=== PATIENT | male | born 1970 | race Caucasian/White ===

== ENCOUNTER → 2020-01-23 16:08 | Outpatient (BNVA) | payer MEDICARE, SELFPAY | PROVIDERS: PCP Nurse Practitioner Family; Referring Provider Nurse Practitioner Family; Visit Provider Internal Medicine | DX: I82.401 Acute embolism and thrombosis of unspecified deep veins of right lower extremity (principal); Z51.81 Encounter for therapeutic drug level monitoring; Z79.01 Long term (current) use of anticoagulants | CPT/HCPCS: 85610 ==

== ENCOUNTER → 2020-02-20 15:59 | Outpatient (BNVA) | payer MEDICARE, SELFPAY | PROVIDERS: PCP Nurse Practitioner Family; Visit Provider Internal Medicine | DX: I82.401 Acute embolism and thrombosis of unspecified deep veins of right lower extremity (principal); Z51.81 Encounter for therapeutic drug level monitoring; Z79.01 Long term (current) use of anticoagulants | CPT/HCPCS: 85610; 99211 ==

== ENCOUNTER → 2020-03-26 15:49 | Outpatient (BNVA) | payer MEDICARE, SELFPAY | PROVIDERS: PCP Nurse Practitioner Family; Visit Provider Internal Medicine | DX: I82.401 Acute embolism and thrombosis of unspecified deep veins of right lower extremity (principal); Z51.81 Encounter for therapeutic drug level monitoring; Z79.01 Long term (current) use of anticoagulants | CPT/HCPCS: 85610; 99211 ==

== ENCOUNTER 2021-06-13 08:37 | Outpatient (REF) | payer OTHER, SELFPAY ==
[2021-06-13 11:38] LABS: INTERNATIONAL NORM RATIO 2.4 (0.9-1.1); Prothrombin Time 27.6 SEC (9.9-13.0)
[2021-06-13 12:07] LABS: Alanine Aminotransferase 11 U/L (0-40); Albumin Level 4.2 g/dL (3.5-5.0); Alkaline Phosphatase 42 U/L (39-117); Anion Gap 12 (12-20); Aspartate Amino Transferase 15 U/L (5-37); Bilirubin Total 0.4 mg/dL (0.0-1.0); Blood Urea Nitrogen 8 mg/dL (9-16); Carbon Dioxide 25 mmol/L (22-29); Chloride 107 mmol/L (96-108); Cholesterol 212 mg/dL; Estimated Glomerular Filt Rate > 60; Glucose Fasting 110 mg/dL (60-99); HDL Cholesterol 58 mg/dL; LDL Cholesterol Calculated 138 mg/dl; Potassium 4.6 mmol/L (3.3-5.1); Prostate Specific Antigen Scr 1.49 ng/mL (<0.05-4.0); Sodium 139 mmol/L (135-145); TSH reflex Free T4 1.85 uIU/mL (0.32-4.0); Total Protein 7.3 g/dL (6.5-8.0); Triglycerides 81 mg/dL
[2021-06-13 12:20] LABS: Appearance Urine HAZY; Color Urine YELLOW; Glucose Urine UA NEG (NEG); Leukocyte Esterase Urine NEG (NEG); Nitrite Urine NEG (NEG); Urine Blood NEG (NEG); Urine Ketones NEG (NEG); Urine Protein NEG (NEG-TRACE)
== END 2021-06-13 08:38 | disposition home or self-care (01) ==
LOC: HO.HMGCLDS 08:37
PROVIDERS: PCP Nurse Practitioner Family; Visit Provider Nurse Practitioner Family
DX: Z00.00 Encounter for general adult medical examination without abnormal findings (principal); Z12.5 Encounter for screening for malignant neoplasm of prostate; Z79.01 Long term (current) use of anticoagulants
CPT/HCPCS: 36415; 80053; 80061; 81003; 84153; 84443; 85610

== ENCOUNTER 2021-11-29 14:06 | Outpatient (REF) | payer OTHER, SELFPAY ==
[2021-11-29 16:59] LABS: MANUAL DIFF FLAG NO
[2021-11-29 17:07] LABS: INTERNATIONAL NORM RATIO 2.4 (0.9-1.1); Prothrombin Time 28.4 SEC (10.0-13.1)
[2021-11-29 17:14] LABS: D Dimer High Sensitivity < 150 NG/ML
[2021-11-29 17:25] LABS: Basophils Absolute Auto 0.1 X10*3/uL (0.0-0.2); Basophils Percent Auto 0.6 % (0-2); Eosinophils Absolute Auto 0.1 X10*3/uL (0.0-0.4); Eosinophils Percent Auto 1.2 % (0-4); Hematocrit 43.4 % (42.0-52.0); Hemoglobin 14.7 g/dl (14.0-18.0); Imm Gran Abs Auto 0.02 X10*3/uL (0.00-0.03); Imm Gran Pct Auto 0.2 % (0.0-0.4); Lymphocytes Absolute Auto 2.6 X10*3/uL (1.2-4.9); Lymphocytes Percent Auto 30.4 % (20-40); Mean Corpuscular HGB Conc 33.9 g/dl (31.0-36.0); Mean Corpuscular Hemoglobin 32.9 pg (27.0-33.0); Mean Corpuscular Volume 97.1 fL (80.0-98.0); Mean Platelet Volume 10.2 fL (9.4-12.4); Monocytes Absolute Auto 0.6 X10*3/uL (0.1-1.2); Monocytes Percent Auto 7.2 % (2-11); Neutrophils Absolute Auto 5.2 x10*3/uL (2.0-8.3); Neutrophils Percent Auto 60.4 % (45-73); Platelet Count 269 X10*3/uL (160-400); Red Blood Count 4.47 X10*6/uL (4.60-5.80); Red Cell Distribution Width 12.9 % (11.0-16.0); White Blood Count 8.6 X10*3/uL (4.8-10.8)
[2021-11-29 17:46] LABS: Alanine Aminotransferase 14 U/L (0-40); Albumin Level 4.3 g/dL (3.5-5.0); Alkaline Phosphatase 42 U/L (39-117); Anion Gap 15 (12-20); Aspartate Amino Transferase 16 U/L (5-37); Bilirubin Total 0.8 mg/dL (0.0-1.0); Blood Urea Nitrogen 15 mg/dL (9-16); Calcium 8.8 mg/dL (8.4-10.2); Carbon Dioxide 24 mmol/L (22-29); Chloride 105 mmol/L (96-108); Estimated Glomerular Filt Rate > 60; Glucose Random 96 mg/dL (60-115); Potassium 4.4 mmol/L (3.3-5.1); Sodium 140 mmol/L (135-145); Total Protein 7.2 g/dL (6.5-8.0)
[2021-11-29 18:19] LABS: Folate 6.1 ng/mL (> or = 4.0); Vitamin B12 223 pg/mL (200-900)
== END 2021-11-29 14:07 | disposition home or self-care (01) ==
LOC: HO.HMGCLDS 14:06
PROVIDERS: PCP Nurse Practitioner Family; Visit Provider Nurse Practitioner Family
DX: R20.2 Paresthesia of skin (principal); R20.0 Anesthesia of skin; Z79.01 Long term (current) use of anticoagulants
CPT/HCPCS: 36415; 80053; 82607; 82746; 85025; 85379; 85610

== ENCOUNTER 2024-06-03 07:55 | Emergency (ER) | payer OTHER, SELFPAY ==
--- NOTE | ~2024-06-03 | CT_ITS ---
EXAMINATION: CT LUMBAR SPINE WITHOUT CONTRAST CLINICAL INFORMATION: Concerning fracture, T12. COMPARISON: Correlated to x-ray dated June 03, 2024. TECHNIQUE: Contiguous axial images through the lumbar spine using 2 mm collimation with bone and soft tissue algorithm. Sagittal and coronal reformatted images acquired. This CT examination was performed using dose optimization techniques as appropriate, variously including the following: *Automated exposure control *Adjustment of mA and/or kV according to patient size (this includes techniques or standardized protocols for targeted exams where dose is matched to indication/reason for exam; i.e. extremities or head) *Use of iterative reconstruction technique DLP: 573.53 mg/cm. FINDINGS: There is incomplete evaluation of the superior endplate of T12/midportion with the sclerosis. There is a superior endplate Schmorl nodes and compression deformity at L1 representing 20% volume loss. No retropulsion. There is vacuum phenomenon and decreased intervertebral disc height and endplate sclerosis at L5-S1. There is vacuum phenomenon at L4-5. No gross malalignment. There is hypertrophy of the facet joints at L4-5 and L5-S1. No gross prevertebral hematoma. There is volume loss/thinning of the left lamina of L5. There is fatty atrophy of the lower lumbar muscles. There is an infrarenal IVC filter. There is calcified plaques throughout the abdominal aorta wall and iliac arteries without gross aneurysm. CT/CT lumbar spine wo IV con IMPRESSION: Unable to evaluate the superior endplate of T12. Please refer to the CT thoracic component. Old superior endplate compression deformity at L1-2 percent in 20% volume loss. Lumbar spondylosis L5-S1 and to a lesser extent L4-5. Atherosclerosis disease, abdominal aorta. Status post IVC filter placement. Electronically signed by: Alvarado Palmer MD 06/03/2024 10:19 AM EST
--- NOTE | ~2024-06-03 | XR_ITS ---
EXAMINATION: XR LUMBAR SPINE 2-3 VIEWS HISTORY: low back pain COMPARISON: Correlation is made with an MRI of the lumbar spine dated 07/12/2017. FINDINGS: AP, lateral, and coned down views of the lumbar spine are submitted. Osseous mineralization is normal. There is a moderate compression fracture involving the superior endplate of T12 which is new from the prior MRI. Five nonrib-bearing lumbar vertebral bodies are identified, maintaining normal height and alignment without evidence of fracture or spondylolisthesis. The intervertebral disc spaces are preserved. There is minimal anterior spurring at the thoracolumbar junction. The posterior elements are intact. The visualized paraspinal soft tissues are unremarkable. And IVC filter is seen in place. XR/XR lumbar spine 2-3V IMPRESSION: Moderate compression fracture involving the superior endplate of T12, new from the prior MRI dated 07/12/2017, but of indeterminate age. This could be assessed with CT or MRI if there is clinical concern for an acute fracture. Electronically signed by: Gray Mak MD 06/03/2024 08:54 AM DA
--- NOTE | ~2024-06-03 | CT_ITS ---
EXAMINATION: CT THORACIC SPINE WITHOUT CONTRAST CLINICAL INFORMATION: Concerning acute fracture T12. COMPARISON: Correlated to x-ray dated June 03, 2024. TECHNIQUE: Contiguous axial images through the thoracic spine using 2 mm collimation with bone and soft tissue algorithm. Sagittal and coronal reformatted images acquired. This CT examination was performed using dose optimization techniques as appropriate, variously including the following: *Automated exposure control *Adjustment of mA and/or kV according to patient size (this includes techniques or standardized protocols for targeted exams where dose is matched to indication/reason for exam; i.e. extremities or head) *Use of iterative reconstruction technique DLP: 625.19 mGy centimeter. FINDINGS: There is an acute superior endplate compression deformity of T12 representing 30% volume loss with 2 mm retropulsion upon central canal. There is a small volume prevertebral compartment hematoma. There is no soft tissue component/tumor infiltration at T12. There is facet joint hypertrophy at T11-12 with calcifications in the medial aspect of the right facet joint protruding upon the right dorsal aspect of the central spinal canal. Multilevel mild thoracic spondylosis. Osteopenia versus osteoporosis. Nonspecific prominent mediastinal lymph nodes. Pulmonary patchy groundglass. CT/CT thoracic spine wo IV con IMPRESSION: Acute superior endplate compression fracture deformity representing 30% volume loss with 2 mm retropulsion at T12 likely osteoporotic in nature. Fleischner guidelines were followed. Electronically signed by: Alvarado Palmer MD 06/03/2024 10:26 AM DA
--- NOTE | ~2024-06-03 | XR_ITS ---
EXAMINATION: XR ABDOMEN 1 VIEW (KUB) HISTORY: constipated COMPARISON: There are no prior studies for comparison. FINDINGS: Three supine views of the abdomen are submitted. The bowel gas pattern is unremarkable, without evidence of mechanical obstruction. There is minimal stool in the colon. No abnormal calcifications are identified. An IVC filter is seen in place. There are no abnormal soft tissue masses. The bones are intact. XR/XR KUB IMPRESSION: Minimal stool in the colon. Electronically signed by: Gray Mak MD 06/03/2024 08:51 AM DA
[2024-06-03 08:11] VITALS: BP 152/94; PULSE 98; RESP 18; TEMP 36.7; O2SAT 97; BMI 31.4
--- NOTE | 2024-06-03 08:30 | ED_ITS ---
HPI - Back Pain/Injury General Chief Complaint: Back Pain/Injury Stated Complaint: back inj, no bowel movements, abd pain Time Seen by Provider: 06/03/24 08:21 Source: patient, RN notes reviewed and old records reviewed Mode of arrival: ambulatory History of Present Illness ED Provider: Denia Dean PA-C HPI Narrative: 43-year-old male with a past medical history of HTN, prior back surgery, presenting to the ED complaining mid-low back pain s/p pushing vehicle out of ice and feeling pop 1 week ago. States after hearing/feeling pop pain brought him to his knees. Denies direct injury/trauma or fall. States has not had BM since incident. Did have small watery BM this morning, has been passing gas, however not today. Denies rectal pain or pressure. Reports episode of nausea/vomiting this morning. Has been taking Cyclobenzaprine, Tylenol, Senna, and MiraLax at home without relief. Denies incontinence/retention, abdominal pain, dysuria/hematuria Related Data Previous Rx's ?Medication ?Instructions ?Recorded warfarin 2.5 mg tablet See Rx Instructions PO .COMPLEX 90 08/02/21 days #360 tabs prednisone 50 mg tablet 50 mg PO DAILY 6 days #6 tabs 11/28/21 dexamethasone 4 mg tablet 4 mg PO .COMPLEX 9 days #18 tabs 01/06/22 metoprolol succinate 50 mg 75 mg (1.5 x 50 mg) PO DAILY 30 05/11/22 tablet,extended release 24 hr days #45 tabs omeprazole 40 mg capsule,delayed 40 mg PO DAILY #90 caps 12/19/22 release lidocaine 5 % topical patch 1 patch topical DAILY PRN pain #30 06/03/24 (Lidoderm) ea oxycodone 5 mg tablet 5 mg PO Q6H PRN pain (scale score 06/03/24 7-10) 3 days #9 tabs prednisone 20 mg tablet 40 mg (2 x 20 mg) PO DAILY 5 days 06/03/24 #10 tabs Allergies Allergy/AdvReac Type Severity Reaction Status Date / Time bee pollen [bee stings] Allergy Hives Verified 06/03/24 08:15 Review of Systems Review of Systems: Yes all other systems are reviewed and are negative Constitutional: Constitutional: Reports as per HPI Neurologic: Denies Sensory deficit (Neuro) PMFSH Past Medical History Attestation statement: The following information was validated with the patient. Source: old records reviewed Medical History HTN (hypertension) Surgical History Deposit filter in place History of appendectomy Family History Family History Father Liver cancer Colon cancer Cancer of pancreas Mother Emphysema, unspecified CVD (cardiovascular disease) Myocardial infarction Brother No problems noted. Sister No problems noted. Son No problems noted. Daughter No problems noted. Social History Social History Housing: Apartment Patient Tobacco Use Status: Current everyday Tobacco user Cigarette Packs Per Day: 1.5 Cigarettes Per Day: 30 Smoked in Last 30 Days: No e-Cigarette/Vaping Use: Never Used Second Hand Smoke Exposure: Yes Use of substances other than those prescribed or required for medical reasons: No Advance Directives: No Advance Directives Information Provided: No Do you have a plan to hurt others: No Plan service: No Current occupational status: employed Current occupation: [employer] Current occupational exposures/hazards: No Cognitive needs: No Hearing needs: No Vision needs: No Physical Exam Vital Signs: Vital Signs: Last Vital Signs Temp 98.7 F 06/03/24 12:00 Pulse 85 06/03/24 12:00 Resp 18 06/03/24 12:00 BP 146/86 H 06/03/24 12:00 Pulse Ox 95 06/03/24 12:00 O2 Del Method Room Air 06/03/24 12:00 BMI result Body Mass Index 31.4 Const: General: cooperative, healthy appearing and no acute distress Orientation/consciousness: patient oriented x3 Limitations: no limitations HEENT: Head: Yes normal to inspection and Yes atraumatic Ears: hearing grossly normal bilaterally General nose exam: Normal external nose present Face and sinus: Yes normal facial exam Eyes: General: appearance normal, both eyes and all related structures EOM: EOMs intact bilaterally Neck: Neck: Yes normal visual inspection and Yes no meningeal signs Resp: Effort & Inspection: normal respiratory effort and no respiratory distress Cardio: Rate: regular rate GI: Inspection: Yes normal to inspection Palpation (GI): Soft to palpation, nontender, no guarding and not rigid : General: Yes no CVA tenderness Back/Spine/Pelvis: Other: No midline cervical/thoracic/lumbar spinous tenderness/step-off or deformity. Back pain not reproducible. No erythema/warmth, crepitus or ecchymosis Back: no CVA tenderness Skin: Rashes: no rashes Wounds: no wounds Neuro: Other: Strength intact throughout. No saddle anesthesia. Sensation intact to light touch. Neurovascular intact distally General: patient oriented x3, gait normal, tone normal, moves all extremities, no meningeal signs and no focal motor deficits Cranial nerves: Yes CN's II-XII intact bilaterally Cognition (Neuro): normal cognition Ga it exam (Neuro): Normal gait present Motor exam (neuro): 5/5 motor strength present throughout Sensory Exam: No Sensory deficit (Neuro) Extrem: General: Yes normal to inspection Course Course Course Narrative: -5623--bladder scan with 99 mL XR KUB IMPRESSION: Minimal stool in the colon. > No evidence of SBO or stool burden XR lumbar spine 2-3V IMPRESSION: Moderate compression fracture involving the superior endplate of T12, new from the prior MRI dated 07/12/2017, but of indeterminate age. This could be assessed with CT or MRI if there is clinical concern for an acute fracture. CT thoracic spine wo IV con IMPRESSION: Acute superior endplate compression fracture deformity representing 30% volume loss with 2 mm retropulsion at T12 likely osteoporotic in nature. Fleischner guidelines were followed. CT lumbar spine wo IV con IMPRESSION: Unable to evaluate the superior endplate of T12. Please refer to the CT thoracic component. Old superior endplate compression deformity at L1-2 percent in 20% volume loss. Lumbar spondylosis L5-S1 and to a lesser extent L4-5. Atherosclerosis disease, abdominal aorta. Status post IVC filter placement. > results discussed with patient. Recommended Orthopedic spine follow-up & pain management > will give Dulcolax and enema in the ED to attempt BM however only minimal stool seen on KUB. -1254--patient with small BM in the ED. Recommended continuation of previously prescribed senna, MiraLax, and enemas as needed for constipation. Results discussed with patient including worrisome signs and symptoms and strict return precautions, and when to return to the emergency department. They verbalized understanding and feel safe for discharge at this time. Medications Administered Discontinued Medications Generic Name Dose Route Start Last Admin Trade Name Jose Guadalupe PRN Reason Stop Dose Admin Bisacodyl 10 mg 06/03/24 11:08 06/03/24 11:33 Bisacodyl 5 Mg Tablet. PO 06/03/24 11:09 10 mg ONCE ONE Administration Mineral Oil 133 ml 06/03/24 11:08 06/03/24 11:33 Mineral Oil Enema 133 Ml Enema KS 06/03/24 11:09 133 ml ONCE ONE Administration Oxycodone HCl 5 mg 06/03/24 08:51 06/03/24 09:10 Oxycodone Hcl Immed Release 5 Mg Tablet PO 06/03/24 08:52 5 mg ONCE ONE Administration Medical Decision Making Medical Decision Making MDM Narrative: 43-year-old male with a past medical history of HTN, prior back surgery, presenting to the ED complaining mid-low back pain s/p pushing vehicle out of ice and feeling pop 1 week ago. States has not had BM since incident, however did have watery BM this morning. On exam vital signs stable, NAD, nontoxic appearing, no midline spinous tenderness throughout. Back pain not reproducible. Rectal tone WNL on exam. No saddle anesthesia. Ambulating with slow/steady gait. Abdomen is soft and nontender. Concern for MSK pain/strain and spasming vs herniated disc vs ?Fracture vs constipation/SBO. No evidence of fecal impaction on rectal. Low suspicion for appendicitis/diverticulitis/colitis. Lower suspicion for cauda equina or cord compression Plan: X-ray, UA, bladder scan, pain control Please refer to course for remaining clinical decision making, interpretation of labs/imaging results, and discussions with consultants and/or family members. Differential Diagnosis Differential Diagnoses: The differential diagnosis associated with the presentation includes As above Admission/Observation Consideration of admission/observation: Escalation of care including admission/observation considered Lab Data [facility] Lab Attestation statement: I reviewed the patient's lab results. Independent Interpretation I performed an independent interpretation of an: Plain X-Ray Radiology Impression Discussion of test interpretation with radiology: I have reviewed the radio logist's reading. Independent Historian Clinical information obtained from an independent historian. History obtained from or confirmed by: Spouse External Record Review External record reviewed: Inpatient record, Office record, Outpatient record, Prior outpatient labs, Prior outpatient radiology, Primary care record and Outside ED record Tests considered The following testing was considered but not selected: As above Prescription Management I considered prescription management with: Pain Medication Chronic Conditions Patient?s care impacted by: Other Social Determinants Patient?s care significantly limited by Social Determinants of Health including: Other Social Determinant of Health Discharge Plan Discharge Clinical Impression: Closed fracture of T12 vertebra Patient Disposition: Home, Self-Care Instructions: Vertebral Compression Fracture (ED) Additional Instructions: You have a fracture of your T12 vertebrae with 2 mm retropulsion YOU NEED TO FOLLOW UP WITH SOCIAL SERVICE AGENCY DIRECTOR. CALL TO MAKE AN APPOINTMENT Please continue previously prescribed muscle relaxer and Tylenol. In addition use Lidoderm patches as prescribed Prednisone as a steroid which will help with pain/swelling Oxycodone as an opiate pain medication, take only when pain is severe for the next 3 days > this will make you constipated, so only take when absolutely needed. Continue taking MiraLax and using enemas as needed If you do not have a bowel movement in the next 48 hours or start passing gas, or pain is unbearable return to the ED If symptoms persist or worsen, pain becomes unbearable, you developed urinary retention or incontinence, or weakness return to the ED Prescriptions: New prednisone 20 mg tablet 40 mg PO DAILY 5 Days Qty: 10 0RF lidocaine [Lidoderm] 5 % adhesive patch,medicated 1 patch topical DAILY MDD remove after 12 hours PRN (Reason: pain) Qty: 30 0RF Rx Instructions: leave on most painful area for up to 12 hrs oxycodone 5 mg tablet 5 mg PO Q6H PRN (Reason: pain (scale score 7-10)) 3 Days Qty: 9 0RF Rx Instructions: Partial Fill upon patient request. No Action warfarin 2.5 mg tablet See Rx Instructions PO .COMPLEX 90 Days Qty: 360 3RF Rx Instructions: 3-4 tabs daily PO or as instructed by anticoagulation clinic; 5mg Sunday, Sunday, 7.5mg Sunday, Sunday, , Sunday, Sunday (3-4 tabs daily); May be adjusted as determined by INR at anticoagulation clinic dexamethasone 4 mg tablet 4 mg PO .COMPLEX 9 Days Qty: 18 0RF Rx Instructions: 4 mg orally 3 times a day for 3 days, twice a day for 3 days, daily for 3 days; metoprolol succinate 50 mg tablet extended release 24 hr 75 mg PO DAILY 30 Days Qty: 45 4RF omeprazole 40 mg capsule,delayed release(DR/EC) 40 mg PO DAILY Qty: 90 0RF Rx Instructions: schedule next PCP appt for future refills prednisone 50 mg tablet 50 mg PO DAILY 6 Days Qty: 6 0RF Referrals: [facility] [Provider Group] - 5 days Wagner Fontaine MD [Primary Care Provider] - 2 days (As scheduled) Stand Alone Forms: Work/School Release Print Language: Guinean
[2024-06-03 09:09] VITALS: BP 128/82; PULSE 86; RESP 18; TEMP 36.7; O2SAT 95
[2024-06-03] MEDS: oxyCODONE HCl Immed Release 5 MG TABLET PO (09:10)
--- OUTSIDE RECORDS SUMMARY | 2024-06-03 10:02 | XMS_ITS | Encounter Summary ---
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 Social History Tobacco Use Types Packs/Day Years Used Date Smoking Tobacco: Every Day Cigarettes 1 41.2 Started: 04/09/1983 Smokeless Tobacco: Never Alcohol Use Standard Drinks/Week Comments Yes 0 (1 standard drink = 0.6 oz pur e alcohol) Sex and Gender Information Value Date Recorded Sex Assigned at Not on file Legal Sex Male 9:51 AM EST Gender Identity Not on file Sexual Orientation Not on file documented as of this encounter Plan of Treatment Upcoming Encounters Date Type Department Care Team (Late st Contact Info) Description 06/05/2024 2:30 PM EST Office Visit Adult Medicine [address] [phone] Wagner Fontaine MD [address] [place] [address] 06/05/2024 3:00 PM EST Anticoagulation - Warfarin Visit [address] [phone] documented as of this encounter Procedures Procedure Name Priority Date/Time Associated Diagnosis Comments POC PROTIME INR BLOOD Routine 02/27/2024 Personal history of PE (pulmonary embolism) Personal history of DVT (deep vein thrombosis) 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 documented in this encounter Results * POC Protime INR Blood (02/27/2024) Lot Number INR POC 2.8 Prothrombin Time POC Exp Date Blood 02/27/2024 Gomez JOHN POINT OF CARE TEST ENTER/ EDIT ORDERABLES Edited Result - Final documented in this encounter Visit Diagnoses Diagnosis Personal history of PE (pulmonary embolism)- Primary Personal history of venous thrombosis and embolism Personal history of DVT (deep vein thrombosis) Personal history of venous thrombosis and embolism penitentiary (current) use of anticoagulants Long-term (current) use of anticoagulants documented in this encounter Care Teams Cloth Seconds Sorter Relationship Specialty Start Date End Date Wagner Fontaine MD [address] [place] [address] PCP - General 06/12/22 documented as of this encounter
--- OUTSIDE RECORDS SUMMARY | 2024-06-03 10:02 | XMS_ITS | Encounter Summary ---
Author Organization [facility] Address [address] [place] [address] Care Team Providers Care Housekeeper/Laundry Assistant Name Role Phone Wagner Fontaine MD Primary Care Provider [phone] Encounter Details Date Type Department Care Team (Latest Contact Info) Description 04/28/2024 2:00 PM EST Anticoagulation - Warfarin Visit Coumadin [address] [phone] Personal history of PE (pulmonary embolism) (Primary Dx); Personal history of DVT (deep vein thrombosis) Social History Tobacco Use Types Packs/Day Years [...] 2:30 PM EST Office Visit Adult Medicine [address] [phone] Wagner Fontaine MD [address] [place] [address] 06/05/2024 3:00 PM EST Anticoagulation - Warfarin Visit Coumadin [address] [phone] documented as of this encounter Procedures Procedure Name Priority Date/Time Associated Diagnosis Comments POC PROTIME INR BLOOD Routine 04/28/2024 Personal history of PE (pulmonary embolism) Personal history of DVT (deep vein thrombosis) documented in this encounter Results * POC Protime INR Blood (04/28/2024) Lot Number INR POC 2.7 Prothrombin Time POC Exp Date Blood 04/28/2024 Cristobal Villarreal MD POINT OF CARE TEST ENTER/EDIT ORDERABLES Edited Result - Final documented in this encounter Visit Diagnoses Diagnosis Personal history of PE (pulmonary embolism)- Primary Personal history of venous thrombosis and embolism Personal history of DVT (deep vein thrombosis) Personal history of venous thrombosis and embolism documented in this encounter Care Teams Housekeeper/Laundry Assistant Relationship Specialty Start Date End Date Wagner Fontaine MD [address] [place] [address] PCP - General 06/12/22 documented as of this encounter
--- OUTSIDE RECORDS SUMMARY | 2024-06-03 10:02 | XMS_ITS | Encounter Summary ---
Author Organization [facility] Address [address] [place] [address] Care Team Providers Care Director Home Health Name Role Phone Wagner Fontaine MD Primary Care Provider [phone]- [phone] Encounter Details Date Type Department Care Team (Latest Contact Info) Description 03/31/2024 2:30 PM EST Anticoagulation - Warfarin Visit Coumadin [address] [phone] Personal history of PE (pulmonary embolism) (Primary [...] on file documented as of this encounter Progress Notes * Xochilt Shea LPN - 03/31/2024 2:30 PM EST . documented in this encounter Plan of Treatment Upcoming Encounters Date Type Department Care Team (Late st Contact Info) Description 06/05/2024 2:30 PM EST Office Visit Adult Medicine [address] [phone] Wagner Fontaine MD [address] [place] [address] [phone] 06/05/2024 3:00 PM EST Anticoagulation - Warfarin Visit [facility] [address] [place] [address] documented as of this encounter Procedures Procedure Name Priority Date/Time Associated Diagnosis Comments POC PROTIME INR BLOOD Routine 03/31/2024 Personal history of PE (pulmonary embolism) Personal history of DVT (deep vein thrombosis) documented in this encounter Results * POC Protime INR Blood (03/31/2024) Lot Number INR POC 3.2 Prothrombin Time POC Exp Date Blood 03/31/2024 Chacha Malone MD POINT OF CARE TEST ENTER/EDIT OR DERABLES Edited Result - Final documented in this encounter Visit Diagnoses Diagnosis Personal history of PE (pulmonary embolism)- Primary Personal history of venous thrombosis and embolism Personal history of DVT (deep vein thrombosis) Personal history of venous thrombosis and embolism documented in this encounter Care Teams Director Home Health Relationship Specialty Start Date End Date Wagner Fontaine MD [address] [facility] [place] [address] PCP - General 06/12/22 documented as of this encounter
--- OUTSIDE RECORDS SUMMARY | 2024-06-03 10:02 | XMS_ITS | Clinical Summary ---
Author Organization [facility] [address] [place] [address] [place] [address] Phone Care Team Providers Care Funeral Counselor Name Role Phone Wagner Fontaine MD Primary Care Provider [phone] Allergies No known active allergies Medications amLODIPine (NORVASC) 2.5 mg tablet Take 1 tablet (2.5 mg total) by mouth 1 (one) time each day. 90 each 02/27/2024 Active warfarin (COUMADIN) 2.5 mg tablet TAKE 2-3 TABLETS DAILY BY MOUTH DIRECTED BY THE CLINIC. May cause heavy bleeding. Take at same time every day. Do not change dietary habits 270 each 03/17/2024 Active omeprazole (PriLOSEC) [address] capsule TAKE 1 CAPSULE BY MOUTH EVERY DAY 90 capsule 04/08/2024 Active Active Problems Problem Noted Date Diagnosed Date Personal history of PE (pulmonary embolism) 02/08 Personal history of DVT (deep vein thrombosis) 1 04/28/2023 Lower leg DVT (deep venous thromboembolism), chr onic, right 01/17/2024 [place] of foot 01/17/2024 Gastroesophageal reflux disease 01/17/2024 Hyperlipidemia 01/17/2024 Dermatophytosis, nail 04/13/2023 Plantar wart 04/13/2023 Primary hypertension 11/20/2022 Alcohol abuse, daily use 09/20/2022 DVT (deep venous thrombosis) 09/06/2010 Overview (01/17/2024): DVT R lower leg Pulmonary embolism 09/06/2010 Overview (01/17/2024): PE dx'd 08/26/10, hospitalized [facility] 08/26/10 - 09/03/10 Cervical radiculitis 06/11/2009 Other specified health status 10/09/2005 Overview (01/17/2024): IMO update Resolved Problems Problem Noted Date Diagnosed Date Resolved Date Obesity (BMI 30-39.9) 01/17/20242023 Tinea pedis of both feet 04/13/2023 Lesion of ulnar nerve 06/11/20092023 Lumbago 10/06/2005 02/27/2024 Encounters Date Type Department Care Team Description 04/28/2024 2:00 PM EST Anticoagulation - Warfarin Visit Coumadin [address] [phone] Personal history of PE (pulmonary embolism) (Primary Dx); Personal history of DVT (deep vein thrombosis) 03/31/2024 2:30 PM EST [facility] [address] [phone] Personal history of PE (pulmonary embolism) (Primary Dx); Personal history of DVT (deep vein thrombosis) 03/12/2024 [place] [facility] [address] [phone] Wagner Fontaine MD Medication Problem from Last 3 Months Surgical History Surgery Date Site/Laterality Comments BACK SURGERY PROCEDURE: HISTORICAL BACK SURGERY APPENDECTOMY PROCEDURE: HISTORICAL APPENDECTOMY Medical History Medical History Date Comments Lumbago 10/06/2005 DX:Lumbago Obesity (BMI 30-39.9) 01/17/2024 Lesion of ulnar nerve 06/11/2009 Tinea pedis of both feet 04/13/2023 Family History Relation Name Status Comments Brother Alive Healthy Daughter Alive Healthy Father Alive UK Maternal Grandfather UK Maternal Grandmother Pulmona ry embolism Mother Alive Emphysema Paternal Grandfather UK Paternal Grandmother UK Sister Alive CA - Blood clot Son Alive Healthy Social History Tobacco Use Types Packs/Day Years [...] on file Sexual Orientation Not on file Obstetrics History Last Filed Vital Signs Vital Sign Reading Time Taken Comments Blood Pressure 126/74 02/27/2024 3:17 PM EST Pulse 85 02/27/2024 3:17 PM EST Temperature 36.7 ??C (98.1 ??F) 02/27/2024 3:17 PM ES T Respiratory Rate 12 02/27/2024 3:17 PM EST Oxygen Saturation - - Inhaled Oxygen Concentration - - Weight 96.6 kg (213 lb) 02/27/2024 3:17 PM EST Height 180.3 cm (5' 11 ) 02/27/2024 3:17 PM EST Body Mass Index 29.71 02/27/2024 3:17 PM EST Plan of Treatment Upcoming Encounters Date Type Department Care Team (Late st Contact Info) Description 06/05/2024 2:30 PM EST Office Visit Adult Medicine [place] - [address] [phone] Wagner Fontaine MD [address] [place] [phone] 06/05/2024 3:00 PM EST Anticoagulation - Warfarin Visit [facility] - [address] [phone] Health Maintenance Due Date Last Done Comments DTaP,Tdap,and Td Vaccines (1 - Tdap) 12/10/1987 Hepatitis A Vaccines (1 of 2 - Risk 2-dose series) 12/10/1987 Hepatitis B Vaccines (1 of 3 - 19+ 3-dose series) 12/10/1987 Pneumococcal Vaccine: 50+ Years (2 of 2 - PCV) 10/31/2012 11/01/2011 Pneumococcal Vaccine: Pediatrics (0 to 5 Years) and At-Risk Patients (6 to 64 Years) (2 of 2 - PCV) 10/31/2012 11/01/2011 Zoster Vaccines (1 of 2) 2018 Colorectal Cancer Screening: Colonoscopy 05/08/2023 Depression Screening 05/08/2023 Hepatitis C Screening 05/08/2023 Lung Cancer Screening (Low Dose CT) 05/08/2023 Social Influencers of Health Screening 05/08/2023 Hypertension/CHF/CAD Annual BMP Blood Test 10/27/2023 10/26/2022, 08/29/2019, 08/29/2019 COVID-19 Vaccine (1 - 2023-2 5 season) 2023 Influenza Vaccine (#1) 2023 Cholesterol Screening (Lipid Panel) 04/10/2029 04/10/2024, 10/26/2022 HIV Screening Completed 03/15/2011 HIB Vaccines Aged Out No longer eligi ble based on patient's age to complete this topic HPV Vaccines Aged Out No longer eligi ble based on patient's age to complete this topic IPV Vaccines Aged Out No longer eligi ble based on patient's age to complete this topic MMR Vaccines Aged Out No longer eligi ble based on patient's age to complete this topic Meningococcal ACWY Vaccine Aged Out N o longer eligible based on patient's age to complete this topic Meningococcal B Vacine Aged Out No lo nger eligible based on patient's age to complete this topic RSV Immunization Patients Under 20 months Aged Out No longer eligible b ased on patient's age to complete this topic Varicella Vaccines Aged Out No longer eligible based on patient's age to complete this topic Procedures Procedure Name Priority Date/Time Associated Diagnosis Comments POC PROTIME INR BLOOD Routine 04/28/2024 Personal history of PE (pulmonary embolism) Personal history of DVT (deep vein thrombosis) LIPID PANEL WITH REFLEX TO DIRECT LDL Routine 04/10/2024 7:42 AM EST Hypercholesterolemi a HEMOGLOBIN A1C Routine 04/10/2024 7:42 AM EST Overweight (BMI 25.0-29.9) POC PROTIME INR BLOOD Routine 03/31/2024 Personal history of PE (pulmonary embolism) Personal history of DVT (deep vein thrombosis) ANNUAL BMP BLOOD TEST Routine 10/26/2022 HIV SCREENING Routine 03/15/2011 from Last 3 Months or Most Recently Relevant to Health Maintenance Results * POC Protime INR Blood (04/28/2024) Only the most recent of2 resultswithin the time period is included. Lot Number INR POC 2.7 Prothrombin Time POC Exp Date Blood 04/28/2024 Cristobal Villarreal MD POINT OF CARE TEST ENTER/EDIT ORDERABLES Edited Result - Final * (ABNORMAL) Lipid panel with reflex to direct LDL (04/10/2024 7:42 AM EST) Cholesterol 247(H) 0 - 200 mg/dL LAB CHEMISTRY METHOD 04/10/2024 10:20 AM [facility] Triglycerides 156(H) 0 - 150 mg/dL LAB CHEMISTRY METHOD 04/10/2024 10:20 AM [facility] HDL 55 >=40 mg/dL LAB CHEMISTRY METHOD 04/10/2024 10:20 AM [facility] LDL Calculated 161(H) 0 - 100 mg/dL LAB CHEMISTRY METHOD 04/10/2024 10:20 AM [facility] VLDL Cholesterol Camilo 31.2 mg/dL LAB CHEMISTRY METHOD 04/10/2024 10:20 AM [facility] Non HDL Chol. (LDL+VLDL) 192(H) <145 mg/dL LAB CHEMISTRY METHOD 04/10/2024 10:20 AM [facility] Chol/HDL Ratio 4.5(H) 0.0 - 4.4 LAB CHEMISTRY METHOD 04/10/2024 10:20 AM [facility] Blood Venous blood specimen / Unknown Venipuncture / Unknown 04/10/2024 7:42 AM EST 04/10/2024 7:42 AM EST Wagner Fontaine MD LAB BLOOD ORDERABLES Final Result Performing Organization Address City/[facility]/ZIP Co de Phone Number [facility] [address] [place] [address], [place] [phone] * Hemoglobin A1c (04/10/2024 7:42 AM EST) [facility] Hemoglobin A1C 6.1 <6.5 % LAB CHEMISTRY METHOD 04/10/2024 12:13 PM EST [facility] Mean Bld Glu Estim. 128 mg/dL LAB CHEMISTRY METHOD 04/10/2024 12:13 PM EST [facility] Blood Venous blood specimen / Unknown Venipuncture / Unknown 04/10/2024 7:42 AM EST 04/10/2024 7:42 AM EST Wagner Fontaine MD LAB BLOOD ORDERABLES Final Result Performing Organization Address City/[facility]/ZIP Co de Phone Number [facility] [address] [place] [address], [place] [phone] * Annual BMP Blood Test (10/26/2022) [facility] Annual BMP Blood Test ABSTRACTED Historical Provider HEALTH MAINTENANCE Final Result * HIV Screening (03/15/2011) [facility] HIV Screening ABSTRACTED Historical Provider HEALTH MAINTENANCE Final Result from Last 3 Months or Most Recently Relevant to Health Maintenance Insurance [facility] Care Teams Funeral Counselor Relationship Specialty Start Date End Date Wagner Fontaine MD [address] [place] [address] PCP - General 06/12/22
--- OUTSIDE RECORDS SUMMARY | 2024-06-03 10:02 | XMS_ITS | Clinical Summary ---
Author Organization [facility] Address [address] [place] [address] Care Team Providers Care Outsole Flexer Name Role Phone Gennaro Carrion Primary Care Provider Allergies No known active allergies Medications Medication Sig Dispensed Refills Start Date End Date Status warfarin (COUMADIN) 7.5 MG tabletIndications:3 days 2.5mg Take 7.5 mg by mouth daily. 0 Active omeprazole (PriLOSEC) 20 MG capsule Take 20 mg by mouth daily. 0 Active traMADol (ULTRAM) 50 MG tablet Take 50 mg by mouth every 6 (six) hours as needed for pain. 12 tablet 0 08/29/2019 Active Social History Tobacco Use Types Packs/Day Years Used Date Smoking Tobacco: Every Day Smokeless Tobacco: Never Alcohol Use Standard Drinks/Week Comments Yes 0 (1 standard drink = 0.6 oz pur e alcohol) social Sex and Gender Information Value Date Recorded Sex Assigned at Male 08/29/2019 12:04 PM EDT Gender Identity Not on file Sexual Orientation Not on file Last Filed Vital Signs Vital Sign Reading Time Taken Comments Blood Pressure 137/84 08/29/2019 1:15 PM EDT Pulse 79 08/29/2019 1:15 PM EDT Temperature 36.6 ??C (97.9 ??F) 08/29/2019 1:15 PM ED T Respiratory Rate 16 08/29/2019 1:15 PM EDT Oxygen Saturation 98% 08/29/2019 1:15 PM EDT Inhaled Oxygen Concentration - - Weight 95.3 kg (210 lb) 08/29/2019 11:16 AM EDT Height 180.3 cm (5' 11 ) 08/29/2019 11:16 AM EDT Body Mass Index 29.29 08/29/2019 11:16 AM EDT Plan of Treatment Health Maintenance Due Date Last Done Comments Hepatitis B Vaccines (1 of 3 - 3-dose series) 1968 Hepatitis C Screening 1968 COVID-19 Vaccine (#1) 06/08/1969 Pneumococcal Vaccine (1 of 2 - PCV) 1974 Depression Screening 1980 BMI Counseling 1986 Preventative Health Evaluation 1986 Tobacco Cessation Counseling 1986 DTap / Tdap / Td (1 - Tdap) 12/10/1987 Colon Cancer Screening (Colonoscopy) 2013 Shingrix-Zoster Vaccine (1 of 2) 2018 Influenza Vaccine (#1) 2023 RSV Ped < 20 months Aged Out No longe r eligible based on patient's age to complete this topic Care Teams Outsole Flexer Relationship Specialty Start Date End Date Gennaro Carrion [address] [place] [address] PCP - General Family Medicine 08/29/19
[2024-06-03] MEDS: bisacodyL 5 MG TABLET.DR 10 MG PO (11:33)
[2024-06-03] MEDS: Mineral OiL enema 133 ML ENEMA PR (11:33)
[2024-06-03 12:00] VITALS: BP 146/86; PULSE 85; RESP 18; TEMP 37.1; O2SAT 95
[2024-06-03 13:15] VITALS: BP 146/86; PULSE 85; RESP 18; TEMP 37.1; O2SAT 95
== END 2024-06-03 13:16 | disposition home or self-care (01) ==
PROVIDERS: Emergency Provider Emergency Medicine; PCP Internal Medicine
DX: S22.089A Unspecified fracture of T11-T12 vertebra, initial encounter for closed fracture (principal); R11.2 Nausea with vomiting, unspecified; M54.50 Low back pain, unspecified; F17.210 Nicotine dependence, cigarettes, uncomplicated; X58.XXXA Exposure to other specified factors, initial encounter; Y93.9 Activity, unspecified; Y92.9 Unspecified place or not applicable; Y99.8 Other external cause status; Z79.899 Other long term (current) drug therapy
CPT/HCPCS: 51798; 72100; 72128; 72131; 74018; 99284; 99285

== ENCOUNTER → 2024-06-03 08:30 | Outpatient (BNV) | payer OTHER, SELFPAY | PROVIDERS: Emergency Provider Emergency Medicine; PCP Internal Medicine; Visit Provider Radiology Diagnostic Radiology | DX: S22.080A Wedge compression fracture of T11-T12 vertebra, initial encounter for closed fracture (principal); K59.00 Constipation, unspecified | CPT/HCPCS: 72100; 72128; 72131; 74018 ==

== ENCOUNTER 2024-06-16 13:41 | Outpatient (AMB) | payer OTHER, SELFPAY ==
--- NOTE | 2024-06-16 14:09 | A.SPINEOV_ITS ---
Intake Visit Reasons[place] [facility] Intake Note: Mr. Macias is here today for a F/u after being seen at the ED for back pain. Nursing Officer Required: No Allergies bee pollen [bee stings] Allergy (Verified 06/03/24 08:15) Hives Assessment & Plan Assessment & Plan (1) T12 compression fracture: Code(s): S22.080A - Wedge compression fracture of T11-T12 vertebra, initial encounter for closed fracture Category: Medical Plan Dear Dr Fontaine, Thank you for referring Mr Macias to our office today. He is a very nice 53-year-old gentleman who was helping someone move their car when it was on a patch of ice about 2 or 3 weeks ago and when he was pushing he felt a pop in his back. At that time it was so bad brought him to his knees. He ended up in the emergency room diagnosed with a T12 compression fracture. Comes in to see us today in follow-up. He tells me he is feeling better. He does use lidocaine patches daily and that seems to help a lot as well as [id number] pain medications. He has no specific radicular complaints going down the legs, nor any myelopathic symptoms. 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 His job has been a little aggressive about wanting him to get back to doing some of the lifting that the normally would have him do, but he has been able to for the most part avoid those activities. PMH: History of DVT, PE, status post IVC filter in Coumadin. He does not recall ever having a specific diagnosis of any kind of specific coagulopathy, but a infection control manager told him it was probably from smoking. History of hypertension, 2 previous back surgeries, the last [address] Castillo at [facility]. Denies any heart attacks, strokes, major pulmonary problems, major abdominal surgeries, liver disease, kidney disease, cancer Social hx: Smokes 1 pack a day and has done so for most of his life, drinks about 4 beers a day and smokes marijuana daily Medications: Coumadin, metoprolol, lidocaine patches, Percocet, omeprazole, Coumadin Allergies: None Physical exam: Tenderness over the thoracolumbar junction, strength and reflexes normal, gait normal Imaging review: CT scan done at [place] emergency room shows a T12 compression fracture with about 20 or 30% height loss. No misalignment or injury to the posterior elements. Impression: 53-year-old male presents with acute T12 compression fracture sustained while he was helping move a car that was stuck on ice. He is feeling better, and at this point I think he is healing on his own. I put him on restrictions at work and gave him a note so that way he would not be forced into doing any lifting, bending or twisting. He does not need a brace. If the pain returns or his aggravated, we can possibly consider a kyphoplasty. For now though, I think he is healing up nicely on his own. I told him that if the pain was gone away and he is feeling better in 6 weeks, he can resume activities as tolerated. Thank you for allowing us to care for your patient. The total time spent with this visit with this patient was 45 minutes reviewing history, physical exam, lumbar imaging review, and implementation of treatment plan or further diagnostic testing Gomez Riley MD,PhD [facility] Coding Level of Care Code New Pt Level 4 (69840) Diagnoses T12 compression fracture S22.080A
--- OUTSIDE RECORDS SUMMARY | 2024-06-16 15:27 | XMS_ITS | Encounter Summary ---
Author Organization [facility] Address [address] [place] [address] Care Team Providers Care Turf Sales Person Name Role Phone Wagner Fontaine MD Primary Care Provider [phone] Encounter Details Date Type Department Care Team (Latest Contact Info) Description 06/05/2024 3:00 PM EST Anticoagulation - Warfarin Visit Coumadin [address] [phone] Personal history of PE (pulmonary embolism) (Primary [...] Care Team (Late st Contact Info) Description 12/05/2024 1:30 PM EDT Office Visit Adult Medicine [address] [phone] Wagner Fontaine MD [address] [place] [address] documented as of this encounter Procedures Procedure Name Priority Date/Time Associated Diagnosis Comments POC PROTIME INR BLOOD Routine 06/05/2024 Personal history of PE (pulmonary embolism) Personal history of DVT (deep vein thrombosis) documented in this encounter Results * POC Protime INR Blood (06/05/2024) Lot Number INR POC 2.9 Prothrombin Time POC Exp Date Blood 06/05/2024 Wagner Fontaine MD POINT OF CARE TEST ENTER/ED IT ORDERABLES Edited Result - Final documented in this encounter Visit Diagnoses Diagnosis Personal history of PE (pulmonary embolism)- Primary Personal history of venous thrombosis and embolism Personal history of DVT (deep vein thrombosis) Personal history of venous thrombosis and embolism documented in this encounter Care Teams Turf Sales Person Relationship Specialty Start Date End Date Wagner Fontaine MD [address] [place] [address] PCP - General 06/12/22 documented as of this encounter
--- OUTSIDE RECORDS SUMMARY | 2024-06-16 15:27 | XMS_ITS | Encounter Summary ---
Author Organization [facility] Address [address] [place] [address] Care Team Providers Care Loan Representative Name Role Phone Wagner Fontaine MD Primary Care Provider [phone] Reason for Referral * Consultation (Urgent) - Authorized Specialty Diagnoses / Procedures Referred By Contac t Referred To Contact Neurosurgery Diagnoses Closed fracture of twelfth thoracic vertebra with routine healing, unspecified fracture morphology, subsequent encounter Acute midline back pain, unspecified back location Wagner Fontaine MD [address] [place] [address] Phone: tel: fax: Tramaine Riley MD [address] [place] [address] Drive [address] [place] [address] Phone: tel: fax: Referral ID Status Reason Start Date Expiration Date Visits Requested Visits Authorized [id number] Authorized Specialty Services Required 06/05/2024 06/05/2025 1 1 Reason for Visit * Reason Comments Hypertension dvt Hyperlipidemia Encounter Details Date Type Department Care Team (Late st Contact Info) Description 06/05/2024 2:30 PM EST Office Visit Adult Medicine [address] [phone] Wagner Fontaine MD [address] [place] [address] Closed fracture of twelfth thoracic vertebra with routine healing, unspecified fracture morphology, subsequent encounter (Primary Dx); Acute midline thoracic back pain; Primary hypertension; Other chronic pulmonary embolism, unspecified whether acute cor pulmonale present (CMS/HCC); Lower leg DVT (deep venous thromboembolism), chronic, right (CMS/HCC) Social History Tobacco Use Types Packs/Day Years [...] on file documented as of this encounter Last Filed Vital Signs Vital Sign Reading Time Taken Comments Blood Pressure 124/72 06/05/2024 2:09 PM EST Pulse 98 06/05/2024 2:09 PM EST Temperature 36.6 ??C (97.8 ??F) 06/05/2024 2:09 PM ES T Respiratory Rate 12 06/05/2024 2:09 PM EST Oxygen Saturation - - Inhaled Oxygen Concentration - - Weight 99.8 kg (220 lb) 06/05/2024 2:09 PM EST Height 180.3 cm (5' 11 ) 06/05/2024 2:09 PM EST Body Mass Index 30.68 06/05/2024 2:09 PM EST documented in this encounter Patient Instructions * Attachments The following attachments cannot be sent through Care Everywhere. * Compression Fracture: Spine (Sinhala) documented in this encounter Ordered Prescriptions Prescription Sig Dispense Quantity Refills Last Filled Start Date End Date warfarin (COUMADIN) 2.5 mg tablet TAKE 2-3 TABLETS DAILY BY MOUTH DIRECTED BY THE CLINIC. May cause heavy bleeding. Take at same time every day. Do not change dietary habits 270 each 06/05/2024 amLODIPine (NORVASC) 2.5 mg tablet Take 1 tablet (2.5 mg total) by mouth 1 (one) time each day. 90 each 06/05/2024 documented in this encounter Progress Notes * Wagner Fontaine MD - 06/05/2024 2:30 PM EST CHIEF COMPLAINT: Hypertension, dvt, and Hyperlipidemia IDENTIFIER: Codey Mcaias is a 53 y.o. old male. HPI: 53 yo M comes for follow up for: Thoracic back pain after falling and sustaining fracture of T12 (closed) PATIENT WAS AT [facility] ON 06/03/2024 Lidocaine, oxycodone and prednisone As per hospital record: You have a fracture of T12 vertebrae with 2 mm of retropulsion You need to follow-up with imcu specialist. Call to make appointment Please continue with previously prescribed muscle relaxer and Tylenol. In addition use Lidoderm patches as prescribed Prednisone as steroid which will help with pain and swelling Oxycodone as opiate pain medication, take only when pain is severe for the next 3 days. This will make you constipated, so only take when absolutely needed Continue with MiraLAX and using enemas as needed If you do not have bowel movement in the next 48 hours or start passing gas, her pain is unbearablereturn to ED If symptoms persist or worsen, pain becomes unbearable, you develop urinary retention or incontinence or weakness return to the ED Patient was also given information regarding vertebral compression fracture ROS: The remainder of review of systems is noncontributory. PAST MEDICAL HISTORY: Patient Active Problem List Diagnosis Date Noted Personal history of PE (pulmonary embolism) 02/27/2024 Personal history of DVT (deep vein thrombosis) 02/27/2024 Lower leg DVT (deep venous thromboembolism), chronic, right ([facility]) 01/17/2024 [place] of foot 01/17/2024 Gastroesophageal reflux disease 01/17/2024 Hyperlipidemia 01/17/2024 Dermatophytosis, nail 04/13/2023 Plantar wart 04/13/2023 Primary hypertension 11/20/2022 Alcohol abuse, daily use 09/20/2022 DVT (deep venous thrombosis) ([facility]) 09/06/2010 Pulmonary embolism ([facility]) 09/06/2010 Cervical radiculitis 06/11/2009 Other specified health status 10/09/2005 SOCIAL HISTORY: Social History Tobacco Use Smoking status: Every Day Current packs/day: 1.00 Average packs/day: 1 pack/day for 41.2 years (41.2 ttl pk-yrs) Types: Cigarettes Start date: 04/09/1983 Smokeless tobacco: Never Substance Use Topics Alcohol use: Yes Alcohol/week: 0.0 standard drinks of alcohol FAMILY HISTORY: Family Status Relation Name Status Mother Alive Emphysema Father Alive [place] MGM Pulmonary embolism MGF UK PGM UK PGF UK Sister Alive [place] - Blood clot Brother Alive Healthy Son Alive Healthy Daughter Alive Healthy No partnership data on file No family history on file. ACTIVE MEDICATIONS: Outpatient Medications Marked as Taking for the 06/05/24 encounter (Office Visit) with Wagner Fontaine MD Medication Sig Dispense Refill amLODIPine (NORVASC) 2.5 mg tablet Take 1 tablet (2.5 mg total) by mouth 1 (one) time each day. 90 each 0 lidocaine (LIDODERM) 5 % patch omeprazole (PriLOSEC) [address] capsule TAKE 1 CAPSULE BY MOUTH EVERY DAY 90 capsule 0 oxyCODONE (ROXICODONE) 5 mg immediate release tablet predniSONE (DELTASONE) 20 mg tablet warfarin (COUMADIN) 2.5 mg tablet TAKE 2-3 TABLETS DAILY BY MOUTH DIRECTED BY THE AC CLINIC. Maycause heavy bleeding. Take at same time every day. Do not change dietary habits 270 each 0 [DISCONTINUED] warfarin (COUMADIN) 2.5 mg tablet TAKE 2-3 TABLETS DAILY BY MOUTH DIRECTED BY THEAC CLINIC. May cause heavy bleeding. Take at same time every day. Do not change dietary habits 270 each 0 ALLERGIES: Patient has no known allergies. PHYSICAL EXAM: Blood pressure 124/72, pulse 98, temperature 36.6 ??C (97.8 ??F), resp. rate 12, height 1.803 m (71 ), weight 99.8 kg (220 lb). Body mass index is 30.68 kg/m??. BMI is greater than 25.0 (above the normal range) - see Plan APPEARANCE: Alert and in no acute distress HEART: RRR with normal S1 and S2, no murmurs, no gallops, no JVD appreciated LUNG: clear to auscultation bilaterally BACK: no pain to palpation and good flexion and extension IMPRESSION: 1. Closed fracture of twelfth thoracic vertebra with routine healing, unspecified fracture morphology, subsequent encounter 2. Acute midline thoracic back pain 3. Primary hypertension 4. Other chronic pulmonary embolism, unspecified whether acute cor pulmonale present (CMS/HCC) 5. Lower leg DVT (deep venous thromboembolism), chronic, right (CMS/HCC) PLAN: 53 yo M comes for follow up for: Thoracic back pain after falling and sustaining fracture of T12 (closed) PATIENT WAS AT [facility] ON 06/03/2024 Lidocaine, oxycodone and prednisone As per hospital record: You have a fracture of T12 vertebrae with 2 mm of retropulsion You need to follow-up with imcu specialist. Call to make appointment Please continue with previously prescribed muscle relaxer and Tylenol. In addition use Lidoderm patches as prescribed Prednisone as steroid which will help with pain and swelling Oxycodone as opiate pain medication, take only when pain is severe for the next 3 days. This will make you constipated, so only take when absolutely needed Continue with MiraLAX and using enemas as needed If you do not have bowel movement in the next 48 hours or start passing gas, her pain is unbearablereturn to ED If symptoms persist or worsen, pain becomes unbearable, you develop urinary retention or incontinence or weakness return to the ED Patient was also given information regarding vertebral compression fracture #Closed fracture 12th vertebrae #Acute midline thoracic back pain Plan: Patient referred urgently to neurosurgery Patient deferred physical therapy referral at this time Patient will continue with pain management as prescribed by ED #Lower extremity DVT, chronic #PE Plan: Warfarin prescribed Patient will follow-up with Coumadin clinic #Hypertension, controlled Plan: Patient will continue with lifestyle changes as tolerated Patient will continue with amlodipine 2.5 mg daily Orders Placed This Encounter Procedures Ambulatory referral to Neurosurgery ADDITIONAL ORDERS: AMB REFERRAL TO NEUROSURGERY Wagner Fontaine MD on 06/07/2024 at 4:36 PM EST documented in this encounter Plan of Treatment Upcoming Encounters Date Type Department Care Team (Late st Contact Info) Description 12/05/2024 1:30 PM EDT Office Visit Adult Medicine [facility] [address] [place] [address] Wagner Fontaine MD [address] [place] [address] Scheduled Referrals Name Type Priority Associated Diagnoses Order Schedule Ambulatory referral to Neurosurgery Outpatient Referral Routine Closed fracture of twelfth thoracic vertebra with routine healing, unspecified fracture morphology, subsequent encounter Acute midline thoracic back pain 1 Occurrences starting 06/05/2024 until 06/05/2025 documented as of this encounter Visit Diagnoses Diagnosis Closed fracture of twelfth thoracic vertebra with routine healing, unspecified fracture morphology, subsequent encounter- Primary Acute midline thoracic back pain Primary hypertension Unspecified essential hypertension Other chronic pulmonary embolism, unspecified whether acute cor pulmonale present (CMS/HCC) Lower leg DVT (deep venous thromboembolism), chronic, right (CMS/HCC) documented in this encounter Discontinued Medications Medication Sig Discontinue Reason Start Date End Da te amLODIPine (NORVASC) 2.5 mg tablet Take 1 tablet (2.5 mg total) by mouth 1 (one) time each day. Reorder 02/27/2024 06/05/2024 warfarin (COUMADIN) 2.5 mg tablet TAKE 2-3 TABLETS DAILY BY MOUTH DIRECTED BY THE AC CLINIC. May cause heavy bleeding. Take at same time every day. Do not change dietary habits Reorder 03/17/2024 06/05/2024 documented as of this encounter Historical Medications * This list may reflect changes made after this encounter. Medication Sig Dispense Quantity Refills Last Filled Start D ate End Date predniSONE (DELTASONE) 20 mg tablet 06/03/2024 oxyCODONE (ROXICODONE) 5 mg immediate release tablet 06/03/2024 lidocaine (LIDODERM) 5 % patch 06/03/2024 added in this encounter Care Teams Loan Representative Relationship Specialty Start Date End Date Wagner Fontaine MD [address] [place] [address] PCP - General 06/12/22 documented as of this encounter
--- OUTSIDE RECORDS SUMMARY | 2024-06-16 15:27 | XMS_ITS | Clinical Summary ---
Author Organization [facility] Address [address] [place] [address] Care Team Providers Care Sourcing Specialist Name Role Phone Gennaro Carrion Primary Care Provider [phone] Allergies No known active allergies Medications Medication [...] age to complete this topic Care Teams Sourcing Specialist Relationship Specialty Start Date End Date Gennaro Carrion [address] [place] [address] PCP - General Family Medicine 08/29/19
--- OUTSIDE RECORDS SUMMARY | 2024-06-16 15:27 | XMS_ITS | Encounter Summary ---
Author Organization [facility] Address [address] [place] [address] Care Team Providers Care Public Defender Name Role Phone Wagner Fontaine MD Primary Care Provider [phone] Encounter Details Date Type Department Care Team (Latest Contact Info) Description 04/28/2024 2:00 PM EST Anticoagulation - Warfarin Visit Coumadin [address] [phone] Personal history of PE (pulmonary embolism) (Primary [...] 1:30 PM EDT Office Visit Adult Medicine [address] [phone] Wagner Fontaine MD [address] [place] [address] documented as of this encounter Procedures Procedure [...] embolism documented in this encounter Care Teams Public Defender Relationship Specialty Start Date End Date Wagner Fontaine MD [address] [place] [address] PCP - General 06/12/22 documented as of this encounter
--- OUTSIDE RECORDS SUMMARY | 2024-06-16 15:27 | XMS_ITS | Clinical Summary ---
Author Organization [facility] [address] [place] [address] [place] [address] Phone Care Team Providers Care Agricultural Equipment Design Engineer Name Role Phone Wagner Fontaine MD Primary Care Provider Allergies No known active allergies Medications omeprazole (PriLOSEC) [address] capsule TAKE 1 CAPSULE BY MOUTH EVERY DAY 90 capsule 4 Active lidocaine (LIDODERM) 5 % patch 5 Active oxyCODONE (ROXICODONE) 5 mg immediate release tablet 5 Active predniSONE (DELTASONE) 20 mg tablet 5 Active amLODIPine (NORVASC) 2.5 mg tablet Take 1 tablet (2.5 mg total) by mouth 1 (one) time each day. 90 each 5 09/04/19 25 Active warfarin (COUMADIN) 2.5 mg tablet TAKE 2-3 TABLETS DAILY BY MOUTH DIRECTED BY THE CLINIC. May cause heavy bleeding. Take at same time every day. Do not change dietary habits 270 each 5 Active amLODIPine (NORVASC) 2.5 mg tablet Take 1 tablet (2.5 mg total) by mouth 1 (one) time each day. 90 each 4 06/05/19 25 Discontinu ed(Reorder ) warfarin (COUMADIN) 2.5 mg tablet TAKE 2-3 TABLETS DAILY BY MOUTH DIRECTED BY THE CLINIC. May cause heavy bleeding. Take at same time every day. Do not change dietary habits 270 each 4 06/05/19 25 Discontinu ed(Reorder ) Active Problems Problem Noted Date Diagnosed Date Personal history of PE (pulmonary embolism) 02/08 Personal history of DVT (deep vein thrombosis) 1 04/28/2023 Lower leg DVT (deep venous thromboembolism), chr onic, right 01/17/2024 [place] of foot 01/17/2024 Gastroesophageal reflux disease 01/17/2024 [...] Encounters Date Type Department Care Team Description 06/05/2024 3:00 PM EST Anticoagulation - Warfarin Visit Coumadin [address] [phone] Personal history of PE (pulmonary embolism) (Primary Dx); Personal history of DVT (deep vein thrombosis) 06/05/2024 2:30 PM EST Office Visit Adult Medicine [address] [address] Wagner Fontaine MD Closed fracture of twelfth thoracic vertebra with routine healing, unspecified fracture morphology, subsequent encounter (Primary Dx); Acute midline thoracic back pain; Primary hypertension; Other chronic pulmonary embolism, unspecified whether acute cor pulmonale present (CMS/HCC); Lower leg DVT (deep venous thromboembolism), chronic, right (CMS/HCC) 04/28/2024 2:00 PM EST Anticoagulation - Warfarin Visit Coumadin [address] [phone] Personal history of PE (pulmonary embolism) (Primary Dx); Personal history of DVT (deep vein thrombosis) 03/31/2024 2:30 PM EST Anticoagulation - Warfarin Visit [address] [phone] Personal history of PE (pulmonary embolism) (Primary Dx); Personal history of DVT (deep vein thrombosis) from Last 3 Months Surgical History Surgery [...] Grandfather [place] Paternal Grandmother [place] Sister Alive [place] - Blood clot Son Alive Healthy Social [...] Mass Index 30.68 06/05/2024 2:09 PM EST Plan of Treatment Upcoming Encounters Date Type Department Care Team (Late st Contact Info) Description 12/05/2024 1:30 PM EDT Office Visit Adult Medicine [facility] [address] [place] [address] Wagner Fontaine MD [address] [place] [address] Health Maintenance Due Date Last Done Comments [...] Test 10/27/2023 10/26/2022, 08/29/2019, 08/29/2019 COVID-19 Vaccine ( - 2023-2 5 season) 2023 Influenza Vaccine [...] Personal history of DVT (deep vein thrombosis) POC PROTIME INR BLOOD Routine 04/28/2024 Personal [...] Maintenance Results * POC Protime INR Blood (06/05/2024) Only the most recent of3 resultswithin the time period is included. Lot Number INR POC 2.9 Prothrombin Time POC Exp Date Blood 06/05/2024 us Wagner Fontaine MD POINT OF CARE TEST ENTER/ED IT ORDERABLES Edited Result - Final * (ABNORMAL) Lipid panel with reflex to direct LDL (04/10/2024 7:42 AM EST) Cholesterol 247(H) 0 - 200 mg/dL LAB CHEMISTRY METHOD 04/10/2024 10:20 AM [facility] Triglycerides 156(H) 0 - 150 mg/dL LAB CHEMISTRY METHOD 04/10/2024 10:20 AM [facility] HDL 55 >=40 mg/dL LAB CHEMISTRY METHOD 04/10/2024 10:20 AM [facility] LDL Calculated 161(H) 0 - 100 mg/dL LAB CHEMISTRY METHOD 04/10/2024 10:20 AM [facility] VLDL Cholesterol [place] 31.2 mg/dL LAB CHEMISTRY METHOD 04/10/2024 10:20 AM [facility] Non HDL Chol. (LDL+VLDL) 192(H) <145 mg/dL LAB CHEMISTRY METHOD 04/10/2024 10:20 AM [facility] Chol/HDL Ratio 4.5(H) 0.0 - 4.4 LAB CHEMISTRY METHOD 04/10/2024 10:20 AM [facility] Blood Venous blood specimen / Unknown Venipuncture / Unknown 04/10/2024 7:42 AM EST 04/10/2024 7:42 AM EST Wagner Fontaine MD LAB BLOOD ORDERABLES Final Result [facility] [address] [place] [address], * Hemoglobin A1c (04/10/2024 7:42 AM EST) Hemoglobin A1C 6.1 <6.5 % LAB CHEMISTRY METHOD 04/10/2024 12:13 PM [facility] Mean Bld Glu Estim. 128 mg/dL LAB CHEMISTRY METHOD 04/10/2024 12:13 PM [facility] Blood Venous blood specimen / Unknown Venipuncture / Unknown 04/10/2024 7:42 AM EST 04/10/2024 7:42 AM EST Wagner Fontaine MD LAB BLOOD ORDERABLES Final Result [facility] [address] [place] [address], * Annual BMP Blood Test (10/26/2022) Annual BMP Blood Test ABSTRACTED Historical Provider HEALTH MAINTENANCE Final Result * HIV Screening (03/15/2011) HIV Screening ABSTRACTED Historical Provider HEALTH MAINTENANCE Final Result from Last 3 Months or Most Recently Relevant to Health Maintenance Insurance [facility] Care Teams Agricultural Equipment Design Engineer Relationship Specialty Start Date End Date Wagner Fontaine MD [address] [place] [address] PCP - General 06/12/22
== END 2024-06-16 14:44 | disposition home or self-care (01) ==
PROVIDERS: PCP Internal Medicine; Visit Provider Physician Assistant
DX: S22.080A Wedge compression fracture of T11-T12 vertebra, initial encounter for closed fracture (principal)
CPT/HCPCS: 99204

== ENCOUNTER → 2024-06-16 13:41 | Outpatient (BNVA) | payer OTHER, SELFPAY | PROVIDERS: PCP Internal Medicine; Visit Provider Physician Assistant ==